=== PATIENT | female | born 1995 | race Caucasian/White ===

== ENCOUNTER 2017-05-05 19:11 | Emergency (ER) | payer MEDICAID ==
[2017-05-05] MEDS ORDERED: SODIUM CHLORIDE 0.9% 1,000 ML IV ONE (19:29)
--- NOTE | 2017-05-05 19:46 | ED Physician Documentation ---
History of Present Illness - Stated complaint Stated Complaint: VOMITING/DIARRHEA - Chief complaint Chief Complaint: Abd Pain - History obtained from History obtained from: Patient, Family - History of Present Illness Timing: Yesterday Pain level max: 4 Pain level now: 3 Improved by: nothing Worsened by: eating - Additonal information Additional information: Patient with nausea, vomiting, diarrhea x 15 hours. Mother sick with same. Boyfriends brother also sick with same. No fevers. Emesis x6. Diarrhea x3. No recent travel or abx. Review of Systems Constitutional: denies: Fever, Chills Ears: denies: Ear pain Nose: denies: Rhinorrhea / runny nose, Congestion Throat: denies: Oral lesions / sores Cardiac: denies: Chest pain / pressure : denies: Dysuria, Frequency, Hesitancy, Now EGA Skin: denies: Rash Musculoskeletal: denies: Neck pain, Back pain Neurologic: denies: Focal weakness, Numbness, Headache PD PAST MEDICAL HISTORY - Past Medical History Past Medical History: Yes Cardiovascular: None Respiratory: None Neuro: Headache/migraine Endocrine/Autoimmune: None GI: None REHAB DEPARTMENT MANAGER: None : None HEENT: None Psych: None Musculoskeletal: None - Past Surgical History Past Surgical History: Yes Ortho: ACL reconstruction - Present Medications Home Medications: Ambulatory Orders Medication Instructions Recorded Confirmed Metoclopramide [Reglan] 5 - 10 mg PO Q6H PRN #10 tablet 05/05/17 - Allergies Allergies/Adverse Reactions: Allergies Allergy/AdvReac Type Severity Reaction Status Date / Time codeine Allergy Hives Verified 05/05/17 19:22 - Social History Does the pt smoke?: Yes Smoking Status: Current every day smoker Does the pt drink ETOH?: Yes Does the pt have substance abuse?: No - Immunizations Immunizations are current?: Yes - POLST Patient has POLST: No PD ED PE NORMAL - Vitals Vital signs reviewed: Yes - General General: Alert and oriented X 3, No acute distress - HEENT HEENT: Moist mucous membranes - Neck Neck: Supple, no meningeal sign - Cardiac Cardiac: RRR, Strong equal pulses - Respiratory Respiratory: No respiratory distress, Clear bilaterally - Abdomen Abdomen: Soft, Non tender, Non distended - Back Back: No CVA TTP - Derm Derm: Warm and dry, No rash - Neuro Neuro: Alert and oriented X 3 - Psych Psych: Normal mood, Normal affect Results - Vitals Vitals: Vital Signs - 24 hr 05/05/17 05/05/17 19:19 20:28 Temperature 36.5 C Heart Rate 100 96 Respiratory 18 16 Rate Blood Pressure 135/77 H 161/84 H O2 Saturation 100 100 Oxygen O2 Source Room air - Labs Labs: Laboratory Tests 05/05/17 19:35 Urine Color YELLOW Urine Clarity CLEAR Urine pH 7.5 Ur Specific [place] 1.015 Urine Protein NEGATIVE Urine Glucose (UA) NEGATIVE Urine Ketones NEGATIVE Urine Occult Blood NEGATIVE Urine Nitrite NEGATIVE Urine Bilirubin NEGATIVE Urine Urobilinogen 0.2 (NORMAL) Ur Leukocyte Esterase NEGATIVE Ur Microscopic Review NOT INDICATED Urine Culture Comments NOT INDICATED Urine HCG, Qual POSITIVE PD MEDICAL DECISION MAKING - ED course Complexity details: reviewed results, re-evaluated patient, considered differential, d/w patient ED course: Patient is a 21-year-old female who presents to the emergency department what appears to be a viral gastroenteritis. Several people at home are sick with same. She is also found a positive test. Estimated gestational age is approximately 3 weeks. She is tolerating p.o. without difficulty here. Will utilize Tylenol at home for pain. Patient counseled regarding signs and symptoms for which I believe and urgent re-evaluation would be necessary. Patient with good understanding of and agreement to plan and is comfortable going home at this time This document was made in part using voice recognition software. While efforts are made to proofread this document, sound alike and grammatical errors may occur. Departure - Departure Disposition: 01 Home, Self Care Clinical Impression: Gastroenteritis, test positive Condition: Good Instructions: ED Gastroenteritis Viral Follow-Up: your,doctor in 1week [Other] Prescriptions: Metoclopramide [Reglan] 5 - 10 mg PO Q6H PRN #10 tablet PRN Reason: Nausea / Vomiting Comments: your test is positive today. You should follow up with your doctor for further care. Return if you worsen. Forms: Activity restrictions Discharge Date/Time: 05/05/17 20:29
[2017-05-05] MEDS ORDERED: ONDANSETRON ODT 4 MG TABLET TL STA (19:50)
[2017-05-05 20:04] LABS: BILIRUBIN,URINE NEGATIVE (NEGATIVE); PH,URINE 7.5 PH (5.0-7.5)
[2017-05-05 20:07] LABS: UA CHARGE (STRIP ONLY) YES; UR CULTURE IF IND NOT INDICATED
[2017-05-05 20:08] LABS: HCG UR QUAL POSITIVE
[2017-05-05 20:29] VITALS: BP 161/84
== END 2017-05-05 20:29 | disposition home or self-care (01) ==
LOC: ED 19:11
DX: K52.9 Noninfective gastroenteritis and colitis, unspecified (principal); Z32.01 Encounter for pregnancy test, result positive; F17.200 Nicotine dependence, unspecified, uncomplicated
CPT/HCPCS: 81003; 81025; 99283; Q0162; 80053; 81001; 83690; 85025; 87086

== ENCOUNTER 2017-05-26 19:54 | Emergency (ER) | payer MEDICAID ==
[2017-05-26 20:01] VITALS: BP 128/69
--- NOTE | 2017-05-26 20:27 | ED Physician Documentation ---
PD HPI URI - Stated complaint Stated Complaint: COUGH/CHILLS/6WKS PREG. - Chief complaint Chief Complaint: Fever - History obtained from History obtained from: Patient - History of Present Illness Timing - onset: Other ( at 6 weeks gestation presents with shaking chills, myalgia, cough and rhinorrhea today.) Review of Systems Constitutional: reports: Fever, Chills, Myalgias, Fatigue Ears: denies: Loss of hearing, Ear pain, Drainage/discharge Nose: reports: Rhinorrhea / runny nose Throat: denies: Sore throat Respiratory: reports: Cough. denies: Dyspnea GI: reports: Nausea. denies: Abdominal Pain PD PAST MEDICAL HISTORY - Past Medical History Cardiovascular: None Respiratory: None Neuro: Headache/migraine Endocrine/Autoimmune: None GI: None LEDGE MAN: None : None HEENT: None Psych: None Musculoskeletal: None Derm: None - Past Surgical History Past Surgical History: Yes Ortho: ACL reconstruction - Present Medications Home Medications: Ambulatory Orders Medication Instructions Recorded Confirmed Pnv No.122/Iron/Folic Acid 1 each PO DAILY 05/26/17 05/26/17 [ Multi Tablet] - Allergies Allergies/Adverse Reactions: Allergies Allergy/AdvReac Type Severity Reaction Status Date / Time codeine Allergy Hives Verified 05/26/17 20:00 - Social History Does the pt smoke?: Yes Smoking Status: Current every day smoker Does the pt drink ETOH?: Yes Does the pt have substance abuse?: No - Immunizations Immunizations are current?: Yes - POLST Patient has POLST: No PD ED PE NORMAL - Vitals Vital signs reviewed: Yes - General General: Alert and oriented X 3, No acute distress - HEENT HEENT: PERRL, EOMI, Pharynx benign - Neck Neck: Supple, no meningeal sign, No bony TTP - Cardiac Cardiac: RRR, No murmur - Respiratory Respiratory: No respiratory distress, Clear bilaterally - Abdomen Abdomen: Non tender - Female Female : Other (Bedside ultrasound demonstrates single live intrauterine with a heart rate of 167.) - Derm Derm: Normal color, Warm and dry - Neuro Neuro: Alert and oriented X 3, Normal speech Results - Vitals Vitals: Vital Signs - 24 hr 05/26/17 19:58 Temperature 36.2 C L Heart Rate 80 Respiratory 14 Rate Blood Pressure 128/69 O2 Saturation 99 Oxygen O2 Source Room air - Labs Labs: Laboratory Tests 05/26/17 21:13 Influenza A (Rapid) Negative Influenza B (Rapid) Negative Influenza Types A,B Ag - Departure - Departure Disposition: 01 Home, Self Care Clinical Impression: Viral URI with cough Condition: Good Record reviewed to determine appropriate education?: Yes Instructions: ED Viral Syndrome Comments: Tylenol for aches and pains, avoid most [id number] medications because of the . Can take the prescription codeine for the cough. Return if worse. Forms: Activity restrictions
== END 2017-05-26 21:35 | disposition home or self-care (01) ==
LOC: ED 19:54
DX: O26.891 Other specified pregnancy related conditions, first trimester (principal); J06.9 Acute upper respiratory infection, unspecified; B97.89 Other viral agents as the cause of diseases classified elsewhere; R05 Cough; O99.331 Smoking (tobacco) complicating pregnancy, first trimester; Z3A.01 Less than 8 weeks gestation of pregnancy
CPT/HCPCS: 87275; 87276; 99282; 99283

== ENCOUNTER 2017-07-09 16:30 | Emergency (ER) | payer MEDICAID ==
[2017-07-09 17:46] LABS: BILIRUBIN,URINE NEGATIVE (NEGATIVE); GLUCOSE, URINE (UA) NEGATIVE (NEGATIVE); KETONES,URINE (UA) NEGATIVE (NEGATIVE); LEUKOCYTE ESTERASE, URINE SMALL (NEGATIVE); NITRITE,URINE NEGATIVE (NEGATIVE); OCCULT BLOOD,URINE NEGATIVE (NEGATIVE); PROTEIN,URINE NEGATIVE (NEGATIVE); UROBILINOGEN,URINE 0.2 (NORMAL) E.U./dL (NORMAL)
[2017-07-09 17:51] LABS: CLARITY,URINE CLEAR (CLEAR)
[2017-07-09 17:56] LABS: AMORPHOUS SEDIMENT,UR Few /LPF; BACTERIA,URINE Moderate /HPF (None Seen); RBC,URINE 0-5 /HPF (0-5); SQUAMOUS EPITHELIAL CELL,UR MANY Squamous (<= Few)
--- NOTE | 2017-07-09 19:06 | ED Physician Documentation ---
PD HPI ABD PAIN - Stated complaint Stated Complaint: AB PX/12 WEEKS PREG - Chief complaint Chief Complaint: Abd Pain - History obtained from History obtained from: Patient - History of Present Illness Timing - onset: Other ( at 12 weeks gestation with right lower quadrant pain that was mild for the last 2 weeks until 3 days ago when she coughed and became severe overnight. Got better and was waxing and waning again but got worse again today and is at times severe. It radiates up to the rib cage when it is bad but not currently. There is no change with eating, no nausea, or changes in her bowel movements. There is no bleeding or fluid loss or discharge.) Review of Systems Constitutional: denies: Fever, Chills Throat: denies: Dental pain / toothache, Sore throat Cardiac: denies: Chest pain / pressure, Palpitations Respiratory: denies: Dyspnea, Cough GI: reports: Abdominal Pain. denies: Nausea, Vomiting, Constipation, Diarrhea PD PAST MEDICAL HISTORY - Past Medical History Cardiovascular: None Respiratory: None Neuro: Headache/migraine Endocrine/Autoimmune: None GI: None CLINICAL LEADER: None : None HEENT: None Psych: None Musculoskeletal: None Derm: None - Past Surgical History Past Surgical History: Yes Ortho: ACL reconstruction - Present Medications Home Medications: Ambulatory Orders Medication Instructions Recorded Confirmed Pnv No.122/Iron/Folic Acid 1 each PO DAILY 05/26/17 05/26/17 [ Multi Tablet] Famotidine [Pepcid] 07/09/17 HYDROcod/ACETAM 5/325 [[place] 5/325] 1 - 2 ea PO Q6H PRN #7 tablet 07/09/17 Nitrofurantoin Monohyd/M-Cryst 1 tab PO BID 5 Days capsule 07/09/17 [Macrobid 100 mg Capsule] - Allergies Allergies/Adverse Reactions: Allergies Allergy/AdvReac Type Severity Reaction Status Date / Time codeine Allergy Hives Verified 07/09/17 16:39 - Social History Does the pt smoke?: Yes Smoking Status: Current every day smoker Does the pt drink ETOH?: Yes Does the pt have substance abuse?: No - Immunizations Immunizations are current?: Yes - POLST Patient has POLST: No PD ED PE NORMAL - Vitals Vital signs reviewed: Yes - General General: Alert and oriented X 3, No acute distress - Cardiac Cardiac: RRR, No murmur - Respiratory Respiratory: No respiratory distress, Clear bilaterally - Abdomen Abdomen: Normal bowel sounds, Soft, Other (Mild tenderness in the right pelvis, inferior and medial to McBurney's point, bedside ultrasound demonstrates single live intrauterine with a heart rate of 146.) - Derm Derm: Normal color, Warm and dry - Extremities Extremities: No edema, No calf tenderness / cord - Neuro Neuro: Alert and oriented X 3, Normal speech - Psych Psych: Normal mood, Normal affect Results - Vitals Vitals: Vital Signs - 24 hr 07/09/17 07/09/17 07/09/17 16:35 18:20 21:02 Temperature 36.6 C 36.3 C L 36.9 C Heart Rate 81 77 76 Respiratory 18 14 21 Rate Blood Pressure 132/67 H 119/63 124/65 O2 Saturation 100 99 97 Oxygen O2 Source Room air - Labs Labs: Laboratory Tests 07/09/17 07/09/17 07/09/17 17:16 19:17 19:17 WBC 13.9 H RBC 4.77 Hgb 14.5 Hct 42.1 MCV 88.3 MCH 30.4 MCHC 34.4 RDW 12.9 Plt Count 245 MPV 8.9 Neut # 9.8 H Lymph # 2.9 [place] # 0.8 Eos # 0.2 Baso # 0.1 Absolute Nucleated RBC 0.00 Nucleated RBC % 0.0 Sodium 136 Potassium 3.7 Chloride 103 Carbon Dioxide 22 Anion Gap 11.0 BUN 11 Creatinine 0.4 Estimated GFR (MDRD) 200 Glucose 83 Calcium 10.0 Total Bilirubin 0.4 AST 14 ALT 14 Alkaline Phosphatase 43 Total Protein 7.1 Albumin 3.7 Globulin 3.4 Albumin/Globulin Ratio 1.1 Lipase 10 L Urine Color YELLOW Urine Clarity CLEAR Urine pH 7.0 Ur Specific [place] 1.010 Urine Protein NEGATIVE Urine Glucose (UA) NEGATIVE Urine Ketones NEGATIVE Urine Occult Blood NEGATIVE Urine Nitrite NEGATIVE Urine Bilirubin NEGATIVE Urine Urobilinogen 0.2 (NORMAL) Ur Leukocyte Esterase SMALL H Urine RBC 0-5 Urine WBC 11-25 H Ur Squamous Epith Cells MANY Squamous H Amorphous Sediment Few Urine Bacteria Moderate H Ur Microscopic Review INDICATED Urine Culture Comments NOT INDICATED - Rads (name of study) OB sono Radiology: EMP read contemporaneously, See rad report PD MEDICAL DECISION MAKING - ED course ED course: 22-year-old woman with 2 weeks of right lower quadrant pain, location and history are inconsistent with appendicitis, and actually prior to discharge it had moved to the left lower quadrant suggesting more of a related issue. She was afebrile. Ultrasound is reassuring. She was given appendicitis precautions but also antibiotics for apparent cystitis. Departure - Departure Disposition: 01 Home, Self Care Clinical Impression: test positive, Cystitis Abdominal pain Qualifiers: Abdominal location: lower abdomen, unspecified Qualified Code(s): R10.30 - Lower abdominal pain, unspecified Condition: Good Record reviewed to determine appropriate education?: Yes Instructions: ED Abdominal Pain Appendx Poss, ED UTI Cystitis Female Prescriptions: HYDROcod/ACETAM 5/325 [[place] 5/325] 1 - 2 ea PO Q6H PRN #7 tablet PRN Reason: Pain Nitrofurantoin Monohyd/M-Cryst [Macrobid 100 mg Capsule] 1 tab PO BID 5 Days capsule Comments: Return in 12-24 hours if not better, anytime if worse or if running a fever. Follow-up with your OB, next available appointment. Discharge Date/Time: 07/09/17 21:36
[2017-07-09 19:25] LABS: BASOPHILS # (AUTO) 0.1 10^3/uL (0.0-0.1); BASOPHILS % (AUTO) 0.8 %; EOSINOPHILS # (AUTO) 0.2 10^3/uL (0.0-0.7); EOSINOPHILS % (AUTO) 1.1 %; HGB - HEMOGLOBIN 14.5 g/dL (12.0-16.0); LYMPHOCYTES # (AUTO) 2.9 10^3/uL (1.5-3.5); LYMPHOCYTES % (AUTO) 21.2 %; MEAN CORPUSCULAR HEMOGLOBIN 30.4 pg (27.0-31.0); MEAN CORPUSCULAR HGB CONC 34.4 g/dL (32.0-36.0); MEAN CORPUSCULAR VOLUME 88.3 fL (81.0-99.0); MEAN PLATELET VOLUME 8.9 fL (7.9-10.8); MONOCYTES # (AUTO) 0.8 10^3/uL (0.0-1.0); MONOCYTES % (AUTO) 6.1 %; NEUTROPHILS # (AUTO) 9.8 10^3/uL (1.5-6.6); NEUTROPHILS % (AUTO) 70.8 %; PLT - PLATELET COUNT 245 10^3/uL (130-450); RED BLOOD COUNT 4.77 10^6/uL (4.20-5.40); RED CELL DISTRIBUTION WIDTH 12.9 % (12.0-15.0); WHITE BLOOD COUNT 13.9 x10^3/uL (4.8-10.8)
[2017-07-09 19:46] LABS: ALBUMIN 3.7 g/dL (3.2-5.5); ALBUMIN/GLOBULIN RATIO 1.1 (1.0-2.2); BILIRUBIN,TOTAL 0.4 mg/dL (0.2-1.0); CREATININE 0.4 mg/dL (0.4-1.0); TOTAL PROTEIN 7.1 g/dL (6.7-8.2)
[2017-07-09] MEDS ORDERED: HYDROcod/ACETAM 5/325 MG TABLET PO STA (20:58)
[2017-07-09 21:03] VITALS: BP 124/65
--- NOTE | 2017-07-09 21:23 | Ultrasound Report ---
EXAM: LIMITED OBSTETRICAL ULTRASOUND EARLY SECOND TRIMESTER EXAM DATE: 07/09/2017 09:06 PM. CLINICAL HISTORY: Pelvic pain. COMPARISON: None. TECHNIQUE: Real-time sonographic evaluation of the fetus performed by the morphologist. Multiple repre sentative static images were saved for review. DATING: Established EGA 15 weeks 1 day with ROSAS 12/30/2017 based on LMP. EGA 15 weeks 1 day with ROSAS 12/30/2017 based on LMP. EGA 14 weeks 3 days with ROSAS 01/04/2018 based on the current ultrasound. GENERAL EVALUATION Ch[place] . Cardiac activity: 138 bpm. movement: Visualized. Presentation: Variable. Placenta: Posterior position. No evidence for previa. Amniotic fluid: Subjectively normal. BIOMETRY Bi-Parietal Diameter (BPD): Not obtained. Head Circumference (HC): 10.53 cm, 15 weeks 0 days Abdominal Circumference (AC): 7.74 cm, 14 weeks 1 day Femur Length (FL): 1.42 cm, 14 weeks 1 day ANATOMY Grossly unremarkable visualized anatomy. MATERNAL STRUCTURES Uterus: Unremarkable. Cervix: Long and closed. Right ovary/adnexa: 3.1 x 1.5 x 1.5 cm, volume 3.6 cc. Unremarkable. Left ovary/adnexa: 2.3 x 1.2 x 2.8 cm, volume 4.0 cc. Unremarkable. Free fluid: None. IMPRESSION: 1. Chavez live intrauterine with gestational age 15 weeks 1 day based on LMP. 2. size is within expected limits for assigned dating. 3. Unremarkable study. Note: Detailed anatomic survey at 18-22 weeks is recommended for all fetuses evaluated prior to 18 we eks, as some structural abnormalities may be inapparent at earlier gestational ages. [facility] Referring Provider Line: [phone] SITE ID: [id number]
[2017-07-09] MEDS ORDERED: NITROFURANTOIN MACRO 100 MG CAPSULE PO STA (21:27)
== END 2017-07-09 21:36 | disposition home or self-care (01) ==
LOC: ED 16:30
DX: O23.12 Infections of bladder in pregnancy, second trimester (principal); O26.892 Other specified pregnancy related conditions, second trimester; R10.31 Right lower quadrant pain; O99.332 Smoking (tobacco) complicating pregnancy, second trimester; Z3A.15 15 weeks gestation of pregnancy
CPT/HCPCS: 36415; 76815; 80053; 81001; 83690; 85025; 99283; 99284; A9270; 81003; 87086

== ENCOUNTER 2017-09-10 21:10 | Emergency (ER) | payer MEDICAID ==
[2017-09-10 21:15] VITALS: BP 132/68
[2017-09-10] MEDS ORDERED: NEOMYCIN/POLYMYX/HC OTIC DROPS RIGHTEAR STA (21:36)
[2017-09-10] MEDS ORDERED: HYDROcod/ACET 5/325 Prepack 4 PO STA (21:36)
--- NOTE | 2017-09-10 21:39 | ED Physician Documentation ---
PD HPI HEENT - Stated complaint Stated Complaint: EAR PAIN - Chief complaint Chief Complaint: Heent - History obtained from History obtained from: Patient - History of Present Illness Timing - onset: Other (She has had about a days worth of right ear pain coming and going with crackling in her ear radiating up and down. No hearing loss per se. No URI symptoms.) Review of Systems Constitutional: denies: Fever, Chills Eyes: denies: Loss of vision, Decreased vision Ears: reports: Ear pain. denies: Loss of hearing, Drainage/discharge, Tinnitus/ ringing, Foreign body Nose: denies: Rhinorrhea / runny nose, Congestion PD PAST MEDICAL HISTORY - Past Medical History Past Medical History: Yes Cardiovascular: None Respiratory: None Neuro: Headache/migraine Endocrine/Autoimmune: None GI: None FRONT COUNTER ATTENDANT: None : None HEENT: None Psych: None Musculoskeletal: None Derm: None - Past Surgical History Past Surgical History: Yes Ortho: ACL reconstruction - Present Medications Home Medications: Ambulatory Orders Medication Instructions Recorded Confirmed Pnv No.122/Iron/Folic Acid 1 each PO DAILY 05/26/17 05/26/17 [ Multi Tablet] Famotidine [Pepcid] 07/09/17 HYDROcod/ACETAM 5/325 [[place] 5/325] 1 - 2 ea PO Q6H PRN #7 tablet 07/09/17 Nitrofurantoin Monohyd/M-Cryst 1 tab PO BID 5 Days capsule 07/09/17 [Macrobid 100 mg Capsule] HYDROcod/ACETAM 5/325 [[place] 5/325] 1 - 2 ea PO Q6H PRN #7 tablet 09/10/17 - Allergies Allergies/Adverse Reactions: Allergies Allergy/AdvReac Type Severity Reaction Status Date / Time codeine Allergy Hives Verified 09/10/17 21:15 - Social History Does the pt smoke?: Yes Smoking Status: Current every day smoker Does the pt drink ETOH?: Yes Does the pt have substance abuse?: No - Immunizations Immunizations are current?: Yes - POLST Patient has POLST: No PD ED PE NORMAL - Vitals Vital signs reviewed: Yes - General General: Alert and oriented X 3, No acute distress - HEENT HEENT: Other (There is a foreign body in the ear canal, a feather that was removed during examination. Examination of the ear canal and eardrum after this demonstrate no otitis, she does have sclerosis of the TM and there is a mild case of external otitis.) - Neck Neck: Supple, no meningeal sign, No bony TTP - Neuro Neuro: Alert and oriented X 3, Normal speech - Psych Psych: Normal mood, Normal affect Results - Vitals Vitals: Vital Signs - 24 hr 09/10/17 21:13 Temperature 36.2 C L Heart Rate 92 Respiratory 16 Rate Blood Pressure 132/68 H O2 Saturation 98 Oxygen O2 Source Room air Procedures - FB removal FB location: Ear Removal method: Foreceps FB removal aftercare: No complications, Removed successfully (A feather) Departure - Departure Disposition: Home, Self Care Clinical Impression: External otitis of right ear Qualifiers: Otitis externa type: other infective Chronicity: acute Qualified Code(s): H60.391 - Other infective otitis externa, right ear Acute foreign body of right ear canal Qualifiers: Encounter type: initial encounter Qualified Code(s): T16.1XXA - Foreign body in right ear, initial encounter Condition: Good Record reviewed to determine appropriate education?: Yes Instructions: ED Foreign Body Ear Canal, ED Otitis Externa Prescriptions: HYDROcod/ACETAM 5/325 [[place] 5/325] 1 - 2 ea PO Q6H PRN #7 tablet PRN Reason: Pain Comments: Use the eardrops 4 times a day, return if worsening. Follow-up with your doctor in a week if not better. Your blood pressure was elevated today on check into the emergency department. This does not mean that you have hypertension, it is a common phenomenon to come to the emergency department and have elevated blood pressure. I recommend that you see your primary care physician within the week to have it rechecked when you are feeling better.
== END 2017-09-10 21:52 | disposition home or self-care (01) ==
LOC: ED 21:10
DX: H60.391 Other infective otitis externa, right ear (principal); T16.1XXA Foreign body in right ear, initial encounter; X58.XXXA Exposure to other specified factors, initial encounter; R03.0 Elevated blood-pressure reading, without diagnosis of hypertension
CPT/HCPCS: 69200; 99282; 99283; A9270

== ENCOUNTER 2017-10-14 18:30 | Emergency (ER) | payer MEDICAID ==
[2017-10-14 19:08] VITALS: BP 136/68
--- NOTE | 2017-10-14 20:41 | ED Physician Documentation ---
PD HPI URI - Stated complaint Stated Complaint: 29WKS/CONGESTION - Chief complaint Chief Complaint: Heent - History obtained from History obtained from: Patient, Family - History of Present Illness Timing - onset: How many days ago (3) Timing details: Gradual onset, Still present Associated symptoms: Ear pain, Nasal congestion, Rhinorrhea, Dry cough Similar symptoms before: Has not had sx before Recently seen: Not recently seen - Additional information Additional information: Patient is a 22 year old approximately 29 weeks who is presenting to the emergency department for uri symptoms. Patient states that she has had cough and cold symptoms for the last few days. patient states that she has been coughing a lot and wanted to make sure she did not hurt the baby. Review of Systems Constitutional: denies: Fever, Chills Ears: reports: Ear pain Nose: reports: Rhinorrhea / runny nose, Congestion Throat: reports: Sore throat Respiratory: reports: Cough GI: denies: Abdominal Pain, Nausea, Vomiting : denies: Dysuria, Frequency, Discharge, Vaginal bleeding Immunocompromised: denies: Immunocompromised PD PAST MEDICAL HISTORY - Past Medical History Past Medical History: No Cardiovascular: None Respiratory: None Endocrine/Autoimmune: None GI: None INSEMINATOR: None : None HEENT: None Psych: None Musculoskeletal: None Derm: None - Past Surgical History Past Surgical History: Yes Ortho: ACL reconstruction - Present Medications Home Medications: Ambulatory Orders Medication Instructions Recorded Confirmed Pnv No.122/Iron/Folic Acid 1 each PO DAILY 05/26/17 05/26/17 [ Multi Tablet] Famotidine [Pepcid] 07/09/17 HYDROcod/ACETAM 5/325 [[place] 5/325] 1 - 2 ea PO Q6H PRN #7 tablet 07/09/17 Nitrofurantoin Monohyd/M-Cryst 1 tab PO BID 5 Days capsule 07/09/17 [Macrobid 100 mg Capsule] HYDROcod/ACETAM 5/325 [[place] 5/325] 1 - 2 ea PO Q6H PRN #7 tablet 09/10/17 - Allergies Allergies/Adverse Reactions: Allergies Allergy/AdvReac Type Severity Reaction Status Date / Time codeine Allergy Hives Verified 09/10/17 21:15 - Social History Does the pt smoke?: Yes Smoking Status: Current every day smoker Does the pt drink ETOH?: Yes Does the pt have substance abuse?: No - Immunizations Immunizations are current?: Yes - POLST Patient has POLST: No PD ED PE NORMAL - Vitals Vital signs reviewed: Yes - General General: Alert and oriented X 3, No acute distress - HEENT HEENT: Atraumatic - Neck Neck: Supple, no meningeal sign - Cardiac Cardiac: RRR - Respiratory Respiratory: No respiratory distress - Derm Derm: Normal color, Warm and dry - Extremities Extremities: No deformity - Neuro Neuro: Alert and oriented X 3 Eye Opening: Spontaneous PD ED PE EXPANDED - HEENT HEENT: R TM dull, L TM dull, Nasal congestion, Rhinorrhea, Moist mucous membranes, Pharyngeal erythema. No: Tonsillar exudate, Soft palate petecchiae - Abdomen Abdomen: Other (gravid abdomen) Results - Vitals Vitals: Vital Signs - 24 hr 10/14/17 19:06 Temperature 36.6 C Heart Rate 100 Respiratory 18 Rate Blood Pressure 136/68 H O2 Saturation 100 Oxygen O2 Source Room air Procedures - Bedside sono Bedside sono by EMP: pelvic ob/fhr 165 PD MEDICAL DECISION MAKING - ED course Complexity details: reviewed old records, reviewed results, re-evaluated patient , considered differential, d/w patient, d/w family ED course: Patient was seen and examined at bedside. patient's fetus was viewed with bedside. ultrasound and was well appearing. Patient was treated with zyrtec. patient required no further work up and was stable for discharge with outpatient follow up. Departure - Departure Disposition: 01 Home, Self Care Clinical Impression: Viral URI with cough Condition: Good Instructions: ED Viral Syndrome Follow-Up: primary,care provider [Other] - Within 3 Days Comments: Your fetus was well appearing today. Your symptoms are likely secondary to a virus or allergic in nature. You can take zyrtec or benadryl as well as tylenol. You should follow up with your doctor if your symptoms persist. You may return to the emergency department at any time for new, worsening or uncontrollable symptoms. Discharge Date/Time: 10/14/17 20:47
== END 2017-10-14 20:47 | disposition home or self-care (01) ==
LOC: ED 18:30
DX: O26.893 Other specified pregnancy related conditions, third trimester (principal); J06.9 Acute upper respiratory infection, unspecified; B97.89 Other viral agents as the cause of diseases classified elsewhere; R05 Cough; O99.333 Smoking (tobacco) complicating pregnancy, third trimester; Z3A.29 29 weeks gestation of pregnancy
CPT/HCPCS: 99281; 99283

== ENCOUNTER 2018-02-09 16:17 | Emergency (ER) | payer MEDICAID ==
[2018-02-09 16:31] VITALS: BP 145/78
--- NOTE | 2018-02-09 17:33 | ED Physician Documentation ---
PD HPI LOWER EXT INJURY - Stated complaint Stated Complaint: L KNEE INJ - Chief complaint Chief Complaint: Trauma Ext - History obtained from History obtained from: Patient - History of Present Illness PD HPI LOW EXT INJURY LOCATION: Left (Tripped over curb yesterday and injured her knee hitting it on the ground. She has a history of ACL repair on that side. She is able to walk and bear weight but has some limitation both in flexion and extension. She took ibuprofen prior to arrival and declines any other pain medication now.) Review of Systems Constitutional: reports: Reviewed and negative Cardiac: reports: Reviewed and negative Respiratory: reports: Reviewed and negative PD PAST MEDICAL HISTORY - Past Medical History Cardiovascular: None Respiratory: None Endocrine/Autoimmune: None GI: None BROOM STITCHER: None : None HEENT: None Psych: None Musculoskeletal: None Derm: None - Past Surgical History Past Surgical History: Yes Ortho: ACL reconstruction - Present Medications Home Medications: Ambulatory Orders Medication Instructions Recorded Confirmed Pnv No.122/Iron/Folic Acid 1 each PO DAILY 05/26/17 05/26/17 [ Multi Tablet] Famotidine [Pepcid] 07/09/17 HYDROcod/ACETAM 5/325 [[place] 5/325] 1 - 2 ea PO Q6H PRN #7 tablet 07/09/17 Nitrofurantoin Monohyd/M-Cryst 1 tab PO BID 5 Days capsule 07/09/17 [Macrobid 100 mg Capsule] HYDROcod/ACETAM 5/325 [[place] 5/325] 1 - 2 ea PO Q6H PRN #7 tablet 09/10/17 Ibuprofen [Motrin] 800 mg PO Q8H PRN #30 tablet 02/09/18 - Allergies Allergies/Adverse Reactions: Allergies Allergy/AdvReac Type Severity Reaction Status Date / Time codeine Allergy Hives Verified 09/10/17 21:15 - Social History Does the pt smoke?: Yes Smoking Status: Current every day smoker Does the pt drink ETOH?: Yes Does the pt have substance abuse?: No - Immunizations Immunizations are current?: Yes - POLST Patient has POLST: No PD ED PE NORMAL - Vitals Vital signs reviewed: Yes - General General: Alert and oriented X 3, No acute distress - Extremities Extremities: Other (Mild tenderness over the left knee anterior and lateral with a small abrasion. Intact quadricep tendon function. ACL testing is tight but she does have a lot of pain with grind testing.) - Neuro Neuro: Alert and oriented X 3, Normal speech Results - Vitals Vitals: Vital Signs - 24 hr 02/09/18 16:20 Temperature 36.4 C L Heart Rate 98 Respiratory 16 Rate Blood Pressure 145/78 H O2 Saturation 98 Oxygen O2 Source Room air - Rads (name of study) L knee 4v Radiology: EMP read contemporaneously (Large effusion of the left knee and postoperative changes without acute bony change.) PD MEDICAL DECISION MAKING - Sepsis Event Vital Signs: Vital Signs - 24 hr 02/09/18 16:20 Temperature 36.4 C L Heart Rate 98 Respiratory 16 Rate Blood Pressure 145/78 H O2 Saturation 98 Oxygen O2 Source Room air Departure - Departure Disposition: Home, Self Care Clinical Impression: Internal derangement of left knee Condition: Good Record reviewed to determine appropriate education?: Yes Instructions: ED Meniscal Injury Knee Poss Follow-Up: [facility] [Provider Group] - Within 1 week Prescriptions: Ibuprofen [Motrin] 800 mg PO Q8H PRN #30 tablet PRN Reason: PAIN &/OR FEVER Comments: Your blood pressure was elevated today on check into the emergency department. This does not mean that you have hypertension, it is a common phenomenon to come to the emergency department and have elevated blood pressure. I recommend that you see your primary care physician within the week to have it rechecked when you are feeling better.
--- NOTE | 2018-02-09 18:06 | XRAY Report ---
Reason: knee inj Procedure Date: 02/09/2018 Accession Number: [id number] / [id number] Procedure: XR - Knee 4 View LT CPT Code: FULL RESULT: EXAM: LEFT KNEE RADIOGRAPHY EXAM DATE: 02/09/2018 05:45 PM. CLINICAL HISTORY: Fall, pain. COMPARISON: None. TECHNIQUE: 4 views, including oblique views. FINDINGS: Bones: Retention pin in the distal femur with associated tunnel artifacts. No acute fracture or other bone lesion. Joints: Joint spaces well preserved. Moderate to large joint effusion. Soft Tissues: Normal. No soft tissue swelling. IMPRESSION: 1. Moderate to large joint effusion. 2. Postoperative changes. No acute bony disease. [facility]
== END 2018-02-09 18:29 | disposition home or self-care (01) ==
LOC: ED 16:17
DX: M23.207 Derangement of unspecified meniscus due to old tear or injury, left knee (principal); R03.0 Elevated blood-pressure reading, without diagnosis of hypertension; F17.200 Nicotine dependence, unspecified, uncomplicated; W10.1XXA Fall (on)(from) sidewalk curb, initial encounter; Y92.480 Sidewalk as the place of occurrence of the external cause
CPT/HCPCS: 99283

== ENCOUNTER 2019-04-13 19:51 | Emergency (ER) | payer MEDICAID ==
[2019-04-13 19:57] VITALS: BP 148/83
== END 2019-04-13 22:01 | disposition left against medical advice (07) ==
LOC: ED 19:51
DX: Z53.21 Procedure and treatment not carried out due to patient leaving prior to being seen by health care provider (principal)